=== PATIENT | female | born 1990 | race Caucasian/White ===

== ENCOUNTER 2024-12-22 22:56 | Inpatient (IN) ==
[2024-12-22] MEDS ORDERED: LIDOCAINE 1% LOCAL 20 ML VIAL INFIL PRN (23:43)
[2024-12-23] MEDS: LACTATED RINGER'S 1,000 ML IV PRN
--- NOTE | 2024-12-23 00:03 | History & Physical Report ---
Date of Service December 22, 2024 Assessment & Plan (1) Elderly primigravida: (2) Group B streptococcal infection during : Plan 34 yo G1 at 40 2/7 wga presents in labor VSS Fetus cat 1 Labor - expectant management GBS+, pcn ordered reviewed pain med options at this point, desires epidural History of Present Illness Chief Complaint: ctx Primary Care Provider: NO PCP 34 yo G1 at 40 2/7 wga presents w/ ctx increasing in frequency and intensity. 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 denies hx stis Allergies Allergy/AdvReac Type Severity Reaction Status Date / Time No Known Allergies Allergy Verified 12/22/24 23:20 Home Medications Medication Instructions Recorded Confirmed Type breast pump #1 ea 11/12/24 12/18/24 Rx famotidine 20 mg tablet (Pepcid) 20 mg PO DAILY 12/22/24 12/22/24 History vits no.124-ferrous fum 1 tab PO DAILY 12/22/24 12/22/24 History 27 mg iron-folic acid 800 mcg tablet ( Vitamin) Patient History Medical History Seasonal allergies History of chicken pox Surgical History S/P wisdom tooth extraction Family History Grandfather (Paternal) Pancreatic cancer Grandfather (Maternal) Myocardial infarction Denies family history of Ovarian cancer Breast cancer Colorectal cancer Social History Smoking Status: Never smoker Do You Dip or Chew Tobacco: No; Hx Alcohol Use: No Hx Substance Use: No Preferred Language: Kazakh Historic Interpreter Required: No Beliefs That Will Affect Care: None marital status: marital status details: Ryan Felix (43) [phone] Current Living Situation: Spouse Current Living Situation Comment: lives with spouse, dog, cat-spouse changing litter current occupational status: employed current occupation: [email or web address] Other Information That Helps Us Care for You: No Feels Safe at Home: No Is there a partner from a previous relationship who is making you feel unsafe now?: No Any Concerns about Your Family Situation: No Would You Like to Speak to Someone About Your Situation: No Safety Concerns: Feels Safe At This Time Assistive Devices: None Physical Exam Genitourinary: OB Exam Abdomen: + vertex (confirmed by us) OB Exam Monitor Tracing: + external FHT monitor used, + external uterine monitor used (q5) and + category I (150/mod/+accel/-decel) SVE 7cm w/ bulging bag by RN Results & Data Vital Signs (Past 12 Hours) Vital Signs Temp Pulse Resp BP 12/22/24 23:25 79 110/66 12/22/24 23:21 97.9 F 18 Laboratory Results OB Labs: Blood Type A Positive 06/20/24 Antibody Screen NEGATIVE 06/20/24 Hgb 11.7 g/dl (12.0-16.0) L 09/30/24 Hct 35.3 % (37.0-47.0) L 09/30/24 MCV 94.2 fL (80.0-100.0) 06/20/24 Plt Count 214 K/uL (130-400) 06/20/24 Rubella IgG Antibody Immune (Immune) 06/20/24 Treponema pallidum Ab Negative (Negative) 09/30/24 Hep Bs Antigen Negative (Negative) 06/20/24 Hepatitis C Antibody Negative (Negative) 06/20/24 HIV 1&2 Ab/P24 Ag 4thGn Negative (Negative) 06/20/24 Glucose 1 Hr 50 gm 85 mg/dl (70-130) 09/30/24 Maternal Serum AFP 55.3 ng/mL 07/08/24 OB Optional Labs: Chlamydia trachomatis RNA Not Detected (NotDetected) 06/10/24 Neisseria gonorrhoeae RNA Not Detected (NotDetected) 06/10/24 Alpha Fetoprotein Triple Screen SEE NOTE 07/08/24 Labs Reviewed: horizon neg--[facility] low risk--[facility] GBS+ Diagnostic Findings posterior plac Coding Level of Care Code None Diagnoses Elderly primigravida O09.519 Group B streptococcal infection during O98.819; B95.1
[2024-12-23] MEDS: PENICILLIN GK 6 MU in DEXTROSE 5% 250 ML IV STA (00:04)
[2024-12-23 00:19] LABS: Hematocrit (blood only) 38.2 % (37.0-47.0); Hemoglobin 12.8 g/dl (12.0-16.0); Mean Corpuscular Hemoglobin 30.8 pg (25.0-34.0); Mean Corpuscular Volume 92.0 fL (80.0-100.0); Platelet Count 171 K/uL (130-400); RDW Standard Deviation 43.8 fL (36.4-46.3); Red Blood Count 4.15 M/uL (4.20-5.40); White Blood Count 17.85 K/ul (4.8-10.8)
[2024-12-23] MEDS ORDERED: LIDOCAINE 2%/EPINEPHRINE 1:200,000 20 ML PF EPI STA (00:19)
[2024-12-23] MEDS ORDERED: NALBUPHINE HCL INJ 10 MG/ML AMP IV PRN (00:19)
[2024-12-23] MEDS ORDERED: ROPIVACAINE 0.5% PF 5 MG/ML 20 ML VIAL EPI PRN (00:19)
[2024-12-23] MEDS ORDERED: diphenhydrAMINE 50 MG/ML VIAL IV PRN (00:19)
[2024-12-23] MEDS ORDERED: BUPIVACAINE 0.25% PF 30 ML VIAL EPI STA (00:19)
[2024-12-23] MEDS ORDERED: fentANYL 2 MCG/ML BUPIVacaine 0.125%-NSS 100ML BAG EPI PRN (00:19)
[2024-12-23] MEDS ORDERED: NALOXONE HCL 1 MG in SODIUM CHLORIDE 0.9% 1,000 ML IV PRN (00:19)
[2024-12-23] MEDS ORDERED: SODIUM CHLORIDE 0.9% PF INJ 10 ML VIAL EPI STA (00:19)
[2024-12-23] MEDS ORDERED: SODIUM CHLORIDE 0.9% PF INJ 10 ML VIAL EPI PRN (00:19)
[2024-12-23] MEDS ORDERED: NALOXONE HCL 0.4 MG/1 ML VIAL/CARP IV PRN (00:19)
[2024-12-23] MEDS ORDERED: LIDOCAINE 2% MPF LOCAL 5 ML VIAL EPI PRN (00:19)
[2024-12-23] MEDS ORDERED: BUPIVACAINE 0.25% PF 30 ML VIAL EPI PRN (00:19)
--- NOTE | 2024-12-23 00:21 | Anesthesiology Consultation ---
Date of Service December 23, 2024 Assessment & Plan (1) Encounter for pre-operative examination: Chart Review Chart Review: Patient NOT seen in Pre Admission Testing and Acceptable Risk for Labor Epidural Consults Requested none History Height/Weight Height: 5 ft 7 in Weight: 86.636 kg Allergies Allergy/AdvReac Type Severity Reaction Status Date / Time No Known Allergies Allergy Verified 12/22/24 23:20 Medications Home Medications Medication Instructions Recorded Confirmed Last Taken breast pump #1 ea 11/12/24 12/18/24 Unknown famotidine 20 mg tablet (Pepcid) 20 mg PO DAILY 12/22/24 12/22/24 12/21/24 vits no.124-ferrous fum 1 tab PO DAILY 12/22/24 12/22/24 12/21/24 27 mg iron-folic acid 800 mcg tablet ( Vitamin) Active Medications Generic Name Dose Route Start Last Admin Trade Name Freq PRN Reason Stop Dose Admin Lactated Ringer's 1,000 mls @ 125 mls/hr 12/22/24 23:43 12/23/24 00:00 Lr IV 12/24/24 23:42 999 mls/hr .Q8H PRN Administration L&D Protocol Protocol Penicillin G Potassium 6 mu/ 262 mls @ 250 mls/hr 12/22/24 23:43 12/23/24 00:04 Dextrose IV 12/23/24 00:45 250 mls/hr NOW STA Administration Past Medical History Medical History Seasonal allergies History of chicken pox Past Family History Family History Grandfather (Paternal) Pancreatic cancer Grandfather (Maternal) Myocardial infarction Denies family history of Ovarian cancer Breast cancer Colorectal cancer Past Surgical History Surgical History S/P wisdom tooth extraction Social History Smoking Status: Never smoker Do You Dip or Chew Tobacco: No Hx Alcohol Use: No Hx Substance Use: No substance use type: does not use Physical Exam Vital Signs Last Vital Signs Temp 97.9 F 12/22/24 23:21 Pulse 79 12/22/24 23:25 Resp 18 12/22/24 23:21 BP 110/66 12/22/24 23:25 Testing Laboratory Results 12/22/24 23:51
[2024-12-23] MEDS: LIDOCAINE 2%/EPINEPHRINE 1:200,000 20 ML PF ONE (00:35)
[2024-12-23] MEDS: BUPIVACAINE 0.25% PF 30 ML VIAL ONE (00:35)
[2024-12-23] MEDS: fentANYL 2 MCG/ML BUPIVacaine 0.125%-NSS 100ML BAG ONE (00:36)
[2024-12-23] MEDS: OXYTOCIN 30 UNITS/NSS 30 UNITS/500 ML BAG IV PRN ×2 (01:39→03:40)
--- NOTE | 2024-12-23 02:04 | Delivery Summary ---
Vaginal Delivery Summary Date of Service December 23, 2024 Vaginal Delivery Summary [facility] PREOPERATIVE DIAGNOSIS: 1. Single intrauterine at 40 3/7 wga 2. Labor 3. GBS+ POSTOPERATIVE DIAGNOSIS: 1. Single intrauterine at 40 3/7 wga 2. Labor 3. GBS+ 4. Delivered PROCEDURE: 1. Normal spontaneous vaginal delivery. SURGEON: Deyanira Dumont MD ANESTHESIA: Epidural. QUANTITATIVE BLOOD LOSS: 461 mL FLUIDS: Continuous LR. URINE OUTPUT: 50cc by straight cath COMPLICATIONS: None. CONDITION: Stable. INDICATIONS: 34 yo G1 at 40 3/7 wga presented in labor at 7cm. She was started on penicillin for GBS+ status and received an epidural. She underwent srom for meconium fluid and rapidly progressed to complete and desired to push FINDINGS: A viable male , weight pending with Apgars of 8 and 9 at 1 and 5 minutes respectively. SPECIMEN: Cord blood OPERATIVE REPORT: The patient progressed to 10 cm, 100% effaced and +2 station, pushed over intact perineum with anesthesia to deliver a viable male , weight and Apgars as above. Head of delivered in ERASMO position. Nuchal cord was reduced. Body and shoulders were delivered without difficulty. was delivered to maternal abdomen and nursing staff. Delayed cord clamping was deferred as infant not immediately vigorous. Cord was clamped and cut. Cord segment and blood were obtained. Placenta delivered spontaneously intact with 3- vessel cord. IV oxytocin and fundal massage were given for excellent hemostasis. Vagina, cervix, perineum, and placenta were inspected. A left vaginal laceration was repaired using 3-0 vicryl, there was excellent hemostasis. Sponge and needle counts correct x2. No sponges were left behind. Mother and stable in immediate period. [facility] [place]ag[place] Delivery Charge Vaginal Delivery Codes: 68697 global code for the antepartum, delivery, and post- Delivery Type Details: [facility]
[2024-12-23] MEDS ORDERED: HYDROCORTISONE ACETATE 25 MG SUPP PR PRN (02:07)
[2024-12-23] MEDS ORDERED: DIPHTHER/TETAN/PERTUS Vaccine (Tdap, Adol/Adult) 0.5mL IM ONE (02:07)
[2024-12-23] MEDS: SODIUM CHLORIDE 0.9% PF INJ 10 ML VIAL ONE (02:28)
[2024-12-23] MEDS ORDERED: PENICILLIN GK 3 MU in DEXTROSE 5% 100 ML IV PRN (02:43)
--- NOTE | 2024-12-23 03:52 | Anesthesia Procedure Note ---
Date of Service December 23, 2024 Anesthesia Post Epidural Note Vital Signs Vital Signs: Temp Pulse Resp BP Pulse Ox 97.7 F 77 18 117/69 100 12/23/24 01:07 12/23/24 03:48 12/23/24 03:32 12/23/24 03:48 12/23/24 02:03 Pain Intensity Bilateral Lower Abdomen: Pain Intensity: 7 Notes Mental Status: alert / awake / arousable and participated in evaluation Nausea / Vomiting: adequately controlled Pain: adequately controlled Airway Patency, RR, SpO2: stable & adequate BP & HR: stable & adequate Hydration State: stable & adequate Neuraxial Anesthesia: was administered and sensory block is resolving Anesthetic Complications: no major complications apparent and Pt Satisfied with anesthetic care Epidural: Removed without complications and With tip intact
[2024-12-23] MEDS: CALCIUM CARBONATE 500 MG CHEWABLE TAB PO PRN (06:40)
[2024-12-23] MEDS: PRENATAL VITAMIN 1 TAB PO SCH (08:57)
[2024-12-23] MEDS: DOCUSATE SODIUM 100 MG CAP PO SCH (08:57)
[2024-12-23] MEDS: BENZOCAINE 20% SPRY 85 APPLN/85 GM CAN EXT PRN (08:57)
[2024-12-23] MEDS: IBUPROFEN 600 MG TAB PO PRN (11:18)
--- NOTE | 2024-12-24 07:49 | Obstetrical Progress Note ---
Date of Service <Nirali Delatorre MD - Last Filed: 12/24/24 07:54> December 24, 2024 Assessment & Plan <Nirali Delatorre MD - Last Filed: 12/24/24 07:54> (1) care following vaginal delivery: Plan -Continue stable and routine care. Breast feeding. Rhesus Positive. Rubella Immune. Incision and sutures are properly annealed without signs of infection. Monitor. <Winnie Ba MD, FACOG - Last Filed: 12/25/24 08:33> (1) care following vaginal delivery: Subjective <Nirali Delatorre MD - Last Filed: 12/24/24 07:54> Ambulation: ambulating normally Voiding: no voiding problems Passing Gas:: Yes Diet Tolerance:: regular diet Lochia:: Small Feeding Type:: breast feeding Current Pain Level(1-10): 0 PPD 1. Pt resting comfortable at bedside. Review of Systems All systems reviewed & are unremarkable except as noted in HPI & below i. Denies fever, chills, sweats ii. Denies SOB, difficulty breathing, chest pain, palpitations, chest pressure iii. Denies breast pain. iv. Denies Dysuria v. Denies headache or changes in vision. Physical Exam <Nirali Delatorre MD - Last Filed: 12/24/24 07:54> Constitutional WD/WN, vitals as above Respiratory normal respiratory effort, lungs clear to auscultation Cardiovascular RRR, no murmur, no edema Gastrointestinal (Abdomen) normal bowel sounds, soft, nontender, no hepatosplenomegaly On palpation of abdomen, fundus is at the level of the umbilicus. uterus is firm and has begun involution, at approximately 1cm/day. Skin no rashes, warm and dry Results & Data <Nirali Delatorre MD - Last Filed: 12/24/24 07:54> Vital Signs (Past 12 Hours) Vital Signs Temp Pulse Resp BP Pulse Ox O2 Del Method 12/24/24 00:00 36.3 C L 80 17 120/80 98 Room Air 12/23/24 20:00 37 C 91 H 18 122/79 97 Room Air Supervising Physician <Winnie Ba MD, FACOG - Last Filed: 12/25/24 08:33> Co-Signing Physician Notes Resident Physician Supervision Note: I was present with [Name of resident] during the history and exam. I discussed the case with the resident and agree with the findings and plan as documented in the note. Any exceptions or clarifications are listed here: [None] Documented By: Winnie Ba MD, FACOG Resident Activity Tracking <Nirali Delatorre MD - Last Filed: 12/24/24 07:54> Resident Involvement: Resident Care Provided Care Provided: OB Delivery
[2024-12-24 08:07] VITALS: RESP 16
[2024-12-24 09:20] LABS: Hematocrit (blood only) 32.9 % (37.0-47.0); Hemoglobin 11.1 g/dl (12.0-16.0)
[2024-12-25 01:29] VITALS: O2SAT 99
--- NOTE | 2024-12-25 08:13 | Obstetrical Progress Note ---
Date of Service December 25, 2024 Assessment & Plan (1) care following vaginal delivery: Plan stable,doing well and ready for dc home. instructions reviewed. f/u 6 wk pp check. breast, rhpo, ri. Subjective Ambulation: ambulating normally Voiding: no voiding problems Diet Tolerance:: regular diet Lochia:: Small Feeding Type:: breast feeding no concerns. Constitutional: + as per Subjective / HPI Physical Exam Constitutional WD/WN, vitals as above Respiratory normal respiratory effort, lungs clear to auscultation Cardiovascular Rate/Rhythm: regular rate and regular rhythm Gastrointestinal (Abdomen) Inspection/Auscultation: abdomen normal to inspection Percussion/Palpation: abdomen soft Fundus firm 2cm down Musculoskeletal nt calves no edema Neurologic grossly normal Psychiatric A+Ox3, euthymic affect Results & Data Vital Signs (Past 12 Hours) Vital Signs Temp Pulse Resp BP Pulse Ox O2 Del Method 12/25/24 00:15 98.2 F 65 16 117/78 99 Room Air
[2024-12-25] MEDS: ACETAMINOPHEN 325 MG TAB PO PRN (08:38)
[2024-12-25 09:07] VITALS: BP 121/79; TEMP 99.1
[2024-12-25 09:11] VITALS: PULSE 65
== END 2024-12-25 14:40 | disposition home or self-care (01) | DRG 768 ==
LOC: OPB 22:56 → 4S1 22:57 → 4E2 12-23 04:34